=== PATIENT | female | born 1985 | race Caucasian/White ===

== ENCOUNTER 2021-01-03 08:56 | Day surgery (SDC) | payer OTHER ==
[~2021-01-03] VITALS: Ht 154.9 cm; Wt 104.3 kg
[2021-01-03 09:46] VITALS: BP 130/67; PULSE 87; TEMP 98.3
--- NOTE | 2021-01-03 09:55 | NUR ---
TO RM AT 0915- CALL LIGHT IN REACH AT BEDSIDE.
[2021-01-03 12:13] VITALS: BP 133/75; PULSE 82; TEMP 97.7
--- NOTE | 2021-01-03 12:13 | NUR ---
TO RM 4 PER CART FROM OR. ALERT ORIENTED X3, TALKING TO AND STAFF. PATIENT DENIES NAUSEA PATIENT DENIES PAIN AT THIS TIME. DRESSINGS CLEAN DRY ON UPPER CHEST AND RIGHT SIDE OF NECK.
[2021-01-03 12:15] VITALS: BP 114/69; PULSE 89
[2021-01-03] MEDS ORDERED: NORCO 325 MG-51 TAB PO (12:15)
--- NOTE | 2021-01-03 12:15 | NUR ---
RECEIVED WATER AND CRACKERS.
[2021-01-03 12:30] VITALS: BP 119/77; PULSE 74
--- NOTE | 2021-01-03 12:30 | NUR ---
AMBULATED TO BATHROOM AND VOIDED. ATE 1 CRACKER AND DRANK 1/2 WATER.
--- NOTE | 2021-01-03 13:15 | NUR ---
RECEIVED DISCHARGE INSTRUCTIONS AND VERBALIZED UNDERSTANDING. DISCONTINUED IV AND INT- CATHETER INTACT. PATIENT GETTING DRESSED. RECEIVED HANDOUT FROM [employer].
--- NOTE | 2021-01-03 13:25 | NUR ---
DISCHARGED PER WC BY NURSING STAFF TO PRIVATE CAR IN CARE OF .
== END 2021-01-03 13:40 | disposition home or self-care (01) ==
LOC: SDCO 08:56
DX: C53.9 Malignant neoplasm of cervix uteri, unspecified (principal); E66.8 Other obesity; Z68.41 Body mass index [BMI] 40.0-44.9, adult; Z20.822 Contact with and (suspected) exposure to COVID-19
CPT/HCPCS: C1788; J0690; J1644; J2250; J2704; J2765; J7120